=== PATIENT | male | born 1985 | race Two or more races ===

== ENCOUNTER 2017-08-23 20:52 | Emergency (ER) | payer OTHER ==
[~2017-08-23] VITALS: Ht 193 cm; Wt 90.7 kg
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
[2017-08-23] MEDS ORDERED: CEPH-264 PO (22:24)
[2017-08-23] MEDS ORDERED: IBUP-1007 PO (22:24)
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
[2017-08-23 22:30] VITALS: BP 141/88
[2017-08-23] MEDS ORDERED: IBUPROFEN 600 MG TABLET. PO ONE (22:30)
[2017-08-23] MEDS ORDERED: CEPHALEXIN 250 MG CAPSULE. PO ONE (22:30)
[2017-08-23] MEDS ORDERED: NEOMY/BACITR/POLYMYXIN OINT PACKET. TP ONE ×3 (22:42→22:45)
== END 2017-08-23 22:58 | disposition home or self-care (01) ==
LOC: ER 20:52
DX: S06.0X9A Concussion with loss of consciousness of unspecified duration, initial encounter (principal); S01.01XA Laceration without foreign body of scalp, initial encounter; R19.7 Diarrhea, unspecified; F41.9 Anxiety disorder, unspecified; Z88.6 Allergy status to analgesic agent; Y08.89XA Assault by other specified means, initial encounter; Y93.89 Activity, other specified; Y92.099 Unspecified place in other non-institutional residence as the place of occurrence of the external cause; Y99.8 Other external cause status
CPT/HCPCS: 12002; 70450; 99284-25